=== PATIENT | male | born 1980 | race Caucasian/White ===

== ENCOUNTER → 2020-10-25 09:48 | Outpatient (CLI) | payer OTHER | END | disposition home or self-care (01) | LOC: D.HCCARDIO 10-16 10:30 | PROVIDERS: ATTEND Internal Medicine Cardiovascular Disease | DX: R06.09 Other forms of dyspnea (principal); I42.9 Cardiomyopathy, unspecified ==

== ENCOUNTER 2020-11-08 07:08 | Day surgery (SDC) | payer OTHER ==
[~2020-11-08] VITALS: Ht 185.4 cm; Wt 137.1 kg
[2020-11-08] MEDS ORDERED: FARXIGA10 MG PO (08:30)
[2020-11-08] MEDS ORDERED: JANUVIA100 MG PO (08:31)
[2020-11-08] MEDS ORDERED: LIPITOR10 MG PO (08:31)
[2020-11-08] MEDS ORDERED: COREG 3.1253.125 MG PO (08:31)
[2020-11-08] MEDS ORDERED: ENTRESTO 24 MG1 EACH PO (08:32)
[2020-11-08] MEDS ORDERED: COLCRYS0.6 MG PO (08:32)
[2020-11-08] MEDS ORDERED: BASAGLAR K100 UNIT/1 SC (08:33)
[2020-11-08] MEDS ORDERED: HUMALOG 30100 UNITS/ SC (08:34)
[2020-11-08 08:49] LABS: BASOPHILS 1.1 % (0-2); EOSINOPHILS 2.7 % (0-7); HEMATOCRIT 49.6 % (42.0-54.0); HEMOGLOBIN 16.3 g/dL (13.5-17.5); LYMPHOCYTES 41.5 % (15-50); MCHC 32.8 g/dL (31.0-37.0); MCV 91.7 fL (80.0-100.0); MONOCYTES 6.5 % (2-11); NEUTROPHILS 48.2 % (40-80); PLATELET COUNT 215 10x3/uL (130-400); RBC 5.41 10x6/uL (4.20-6.10); RDW 14.1 % (11.5-14.5); WBC 7.2 10x3/uL (4.8-10.8)
[2020-11-08 08:52] VITALS: BP 144/106; Ht 185.4 cm; Wt 137.1 kg
[2020-11-08 08:55] LABS: ANION GAP 12.3 mmol/L (8-16); CALCIUM 9.1 mg/dL (8.5-10.1); CARBON DIOXIDE 26.3 mmol/L (21.0-32.0); CREATININE - SERUM 1.4 mg/dL (0.6-1.3); POTASSIUM - SERUM 4.6 mmol/L (3.5-5.1)
--- NOTE | 2020-11-08 10:50 | NUR ---
PT ARRIVED BY STRETCHER. PLACED ON MONITORS. ASSESSMENT COMPLETED. VSS AT THIS TIME. CALL LIGHT WITHIN REACH. FAMILY AT BEDSIDE.
--- NOTE | 2020-11-08 11:05 | NUR ---
RIGHT WRIST Z BAND IN PLACE. NO BLEEDING/HEMATOMA NOTED. CALL LIGHT WITHIN REACH. FAMILY AT BEDSIDE. VSS. DR. GALO ROUNDED AND SPOKE WITH PT AND PT'S FAMILY. THEY VOICED UNDERSTANDING.
--- NOTE | 2020-11-08 11:35 | NUR ---
PT RESTING COMFORTABLY. VSS. DENIES NAUSEA/PAIN. PT IS AWAKE AND ALERT. SET UP WITH SANDWICH TRAY AND DRINK. RIGHT WRIST Z BAND IN PLACE. NO BLEEDING/HEMATOMA NOTED.
--- NOTE | 2020-11-08 12:05 | NUR ---
2cc OF AIR REMOVED FROM Z BAND. NO BLEEDING/HEMATOMA NOTED. TOLERATING WELL. VSS AT THIS TIME.
--- NOTE | 2020-11-08 12:20 | NUR ---
3cc OF AIR REMOVED FROM Z BAND. NO BLEEDING/HEMATOMA NOTED. CALL LIGHT WITHIN REACH. PT RESTING COMFORTABLY. NO NEEDS AT THIS TIME.
--- NOTE | 2020-11-08 12:35 | NUR ---
4cc OF AIR REMOVED FROM Z BAND. NO BLEEDING/HEMATOMA NOTED. CALL LIGHT WITHIN REACH. VSS AT THIS TIME. NO NEEDS. RESTING COMFORTABLY.
--- NOTE | 2020-11-08 12:50 | NUR ---
Z BAND REMOVED AND DRESSING APPLIED. NO BLEEDING/HEMATOMA NOTED. RIGHT WRIST BRACE IN PLACE. PIV D/C'D WITH CATH TIP INTACT. TOLERATED WELL. DISCUSSED DISCHARGE INSTRUCTIONS WITH PT AND PT'S . THEY VOICED UNDERSTANDING. NO OTHER NEEDS AT THIS TIME. PT INSTRUCTED TO GET UP AND DRESSED. FAMILY AT BEDSIDE TO ASSIST. CALL LIGHT LEFT WITHIN REACH.
--- NOTE | 2020-11-08 13:05 | NUR ---
PT AMBUALTED TO RESTROOM. VOIDED WITHOUT DIFFICULTY. STEADY GAIT NOTED. RIGHT WRIST DRESSING C/D/I. NO S/S OF HEMATOMA NOTED. PT TAKEN OUT TO VEHICLE BY WHEELCHAIR. NO S/S OF DISTRESS NOTED. ALL BELONGINGS AND PAPERWORK IN HAND.
== END 2020-11-08 13:05 | disposition home or self-care (01) ==
LOC: D.CATH 07:08
PROVIDERS: ATTEND Internal Medicine Cardiovascular Disease
DX: I20.8 Other forms of angina pectoris (principal); R94.39 Abnormal result of other cardiovascular function study; R06.02 Shortness of breath; R06.09 Other forms of dyspnea; I42.9 Cardiomyopathy, unspecified